=== PATIENT | female | born 1965 | race American Indian/Alaskan Native ===

== ENCOUNTER 2018-01-30 20:58 | Observation (INO) | payer BC, OTHER ==
--- NOTE | 2018-01-30 21:29 | ED PDOC ---
Arrival/HPI - General Chief Complaint: Lower Extremity Problem/Injury Time Seen by Provider: 01/30/18 21:01 Historian: Patient - History of Present Illness Narrative History of Present Illness (Text): 01/30/18 21:27 52yr old female presents today with left knee pain s/p fall. pt states she missed a step and stumbled forward down stairs then hitting her left knee directly onto the wooden poll. pt states she is unable to bear any weight on the left leg and is c/o pain to the anterior aspect of the knee. pt states incident occurred about 2 hours prior to arrival. no medications have been taken for pain. pt denies hitting her head. denies loc. pt denies cp or sob. no abdominal pain. pt states no other complaints. Past Medical History - Provider Review Nursing Documentation Reviewed: Yes - Travel History Have you recently traveled outside [place] w/in the past 3 mons?: No - Tetanus Immunization Tetanus Immunization: Unknown - Past Medical History Past Medical History: No Previous - Cardiac Hx Cardiac Disorders: No - Pulmonary Hx Respiratory Disorders: No - Neurological Hx Neurological Disorder: Yes Hx Migraine: Yes - HEENT Hx HEENT Disorder: No - Renal Hx Renal Disorder: No - Endocrine/Metabolic Hx Endocrine Disorders: No - Hematological/Oncological Hx Blood Disorders: No - Integumentary Hx Dermatological Disorder: No - Musculoskeletal/Rheumatological Hx Musculoskeletal Disorders: No - Gastrointestinal Hx Gastrointestinal Disorders: No - Genitourinary/Gynecological Hx Genitourinary Disorders: Yes Hx Urinary Tract Infection: Yes - Psychiatric Hx Psychophysiologic Disorder: Yes Hx Anxiety: Yes Hx Panic Disorder: Yes Hx Substance Use: No - Surgical History Hx Section: Yes - Suicidal Assessment Feels Threatened In Home Enviroment: No Family/Social History - Physician Review Nursing Documentation Reviewed: Yes Family/Social History: Unknown Family HX Smoking Status: Never Smoked Hx Alcohol Use: No Hx Substance Use: No Allergies/Home Meds Allergies/Adverse Reactions: Allergies No Known Allergies Allergy (Verified 01/30/18 20:59) Home Medications: Home Meds Medication Instructions Recorded Confirmed No Known Home Med 01/30/18 01/30/18 Review of Systems - Review of Systems Constitutional: absent: Fatigue, Fevers Respiratory: absent: SOB, Cough Cardiovascular: absent: Chest Pain, Palpitations Gastrointestinal: absent: Abdominal Pain, Constipation, Diarrhea, Nausea, Vomiting Genitourinary Female: absent: Dysuria, Frequency, Hematuria Musculoskeletal: Arthralgias (left knee pain). absent: Back Pain, Neck Pain Skin: absent: Rash, Pruritis Neurological: absent: Headache, Dizziness Psychiatric: absent: Anxiety, Depression Physical Exam Vital Signs Reviewed: Yes Vital Signs Temp Pulse Resp BP Pulse Ox 01/30/18 21:00 98.0 F 94 H 18 143/82 97 Temperature: Afebrile Blood Pressure: Normal Pulse: Regular Respiratory Rate: Normal Appearance: Positive for: Well-Appearing, Non-Toxic, Comfortable Pain Distress: None Mental Status: Positive for: Alert and Oriented X 3 - Systems Exam Head: Present: Atraumatic Pupils: Present: PERRL Extroacular Muscles: Present: EOMI Mouth: Present: Moist Mucous Membranes Neck: Present: Normal Range of Motion Respiratory/Chest: Present: Clear to Auscultation, Good Air Exchange. No: Respiratory Distress, Accessory Muscle Use, Tender to Palpation Cardiovascular: Present: Regular Rate and Rhythm Abdomen: No: Tenderness, Rebound, Guarding Back: Present: Normal Inspection Upper Extremity: Present: Normal Inspection, Normal ROM. No: Tenderness Lower Extremity: Present: Tenderness (left knee; + ttp over anteriolateral aspect of the knee. + ttp over the patella. unable to flex or extend the knee. no calf tenderness. no erythema; sensation and distal pulses intact. ), Swelling, Neurovascularly Intact, Capillary Refill < 2 s. No: CALF TENDERNESS, Normal ROM, Erythema Neurological: Present: GCS=15, Speech Normal, Normal Sensory Function Skin: Present: Warm, Dry, Normal Color Psychiatric: Present: Alert, Oriented x 3 Medical Decision Making ED Course and Treatment: 01/30/18 21:42 Patient nontoxic well-appearing in no distress with stable vital signs X-rays of the Left knee; no fx toradol pt with severe left pain; will not flex or extend knee; screaming in pain with attempted movement. CT of knee ordered. ct left knee; FINDINGS: BONES: No acute fracture or aggressive appearing osseous lesion. JOINTS: No dislocation. The joint spaces are normal. SOFT TISSUES: The soft tissues are unremarkable. IMPRESSION: No acute osseous abnormality. pt reassessment; pt has slight improvement in her knee pain. still unable to lift her leg of the bed; + tenderness over quadraceps tendon concerning for rupture. pt unable to ambulate. c/o severe pain with attempted movement. will admit observational status for ortho consult, pain control. knee immobilizer ordered. pt refused morphine; percocet given. case discussed with dr. zhao. accepts observational status admission with Ortho consult . Impression: knee pain, possible quadraceps tendon rupture. admit observational status to med/surg. Disposition/Present on Arrival - Present on Arrival Any Indicators Present on Arrival: No History of DVT/PE: No History of Uncontrolled Diabetes: No Urinary Catheter: No History of Decub. Ulcer: No History Surgical Site Infection Following: None - Disposition Have Diagnosis and Disposition been Completed?: Yes Diagnosis: Knee pain, Inability to ambulate due to knee Disposition: HOSPITALIZED Disposition Time: 22:30 Patient Plan: Observation Patient Problems: Current Active Problems Problem Status Onset Inability to ambulate due to knee Acute Knee pain Acute Condition: FAIR
[2018-01-31] MEDS: Morphine 4 mg/ml ISec IVP STA ×2 (01:38→02:25)
[2018-01-31] MEDS ORDERED: Oxycodone/Acetaminophen 5/325 mg Tab PO STA (01:48)
--- NOTE | 2018-01-31 02:15 | CP.PCM.HP ---
<HansaEdgar - Last Filed: 01/31/18 02:12> History of Present Illness - History of Present Illness History of Present Illness: Edgar Santo PGY1 H&P for Dr. Cutler Pt is a 52yo F with no PMH who presents to ED s/p fall. She reports falling into a wooden pole on the stairs directly on her L knee, and then falling down a few stairs. She denies dizziness prior to fall, loss of consciousness, or head trauma. She reports feeling pain in the L thigh and knee which she rates 10/10 and describes as a sharp pain. She reports limited ability to move L leg. She denies any previous history of difficulty ambulating. She denies numbness or tingling, loss of bowel or urine control. She denies shortness of breath, chest pain, abdominal pain, nausea, vomiting, diarrhea, or dysuria. SxH: FamH: mom and dad both , cancer SocH: denies tobacco or recreational drug use. reports occasional etoh use Allergies: NKDA Meds: none PMD: none Present on Admission - Present on Admission Any Indicators Present on Admission: No Review of Systems - Review of Systems Review of Systems: as per HPI Past Patient History - Tetanus Immunizations Tetanus Immunization: Unknown - Past Social History Smoking Status: Never Smoked - CARDIAC Hx Cardiac Disorders: No - PULMONARY Hx Respiratory Disorders: No - NEUROLOGICAL Hx Neurological Disorder: Yes Hx Migraine: Yes - HEENT Hx HEENT Problems: No - RENAL Hx Chronic Kidney Disease: No - ENDOCRINE/METABOLIC Hx Endocrine Disorders: No - HEMATOLOGICAL/ONCOLOGICAL Hx Blood Disorders: No - INTEGUMENTARY Hx Dermatological Problems: No - MUSCULOSKELETAL/RHEUMATOLOGICAL Hx Musculoskeletal Disorders: No - GASTROINTESTINAL Hx Gastrointestinal Disorders: No - GENITOURINARY/GYNECOLOGICAL Hx Genitourinary Disorders: Yes Hx Urinary Tract Infection: Yes - PSYCHIATRIC Hx Psychophysiologic Disorder: Yes Hx Anxiety: Yes Hx Panic Symptoms: Yes Hx Substance Use: No - SURGICAL HISTORY Hx Section: Yes Meds Allergies/Adverse Reactions: Allergies Allergy/AdvReac Type Severity Reaction Status Date / Time No Known Allergies Allergy Verified 01/30/18 20:59 Physical Exam - Constitutional Appears: Well, No Acute Distress - Head Exam Head Exam: ATRAUMATIC, NORMOCEPHALIC - Eye Exam Eye Exam: EOMI, Normal appearance, PERRL Pupil Exam: NORMAL ACCOMODATION - ENT Exam ENT Exam: Mucous Membranes Moist - Neck Exam Neck exam: Positive for: Normal Inspection - Respiratory Exam Respiratory Exam: Clear to Auscultation Bilateral, NORMAL BREATHING PATTERN. absent: Rales, Rhonchi, Wheezes, Respiratory Distress - Cardiovascular Exam Cardiovascular Exam: REGULAR RHYTHM, +S1, +S2. absent: Gallop, Rubs, Systolic Murmur - GI/Abdominal Exam GI & Abdominal Exam: Normal Bowel Sounds, Soft. absent: Distended, Firm, Tenderness - Extremities Exam Extremities exam: Positive for: tenderness. Negative for: pedal edema Additional comments: tenderness to palpation of patella and medial and lateral joint lines. mild edema in patella. tenderness to palpation of L distal quadriceps. Limited ROM in LLE due to pain. ROM in RLE intact. - Back Exam Back exam: NORMAL INSPECTION - Neurological Exam Neurological exam: Alert, Oriented x3 - Psychiatric Exam Psychiatric exam: Normal Affect, Normal Mood - Skin Skin Exam: Normal Color Results - Vital Signs Recent Vital Signs: Last Vital Signs Temp 98.0 F 01/30/18 21:00 Pulse 75 01/31/18 01:53 Resp 18 01/31/18 01:53 BP 110/81 01/31/18 01:53 Pulse Ox 100 01/31/18 01:53 Assessment & Plan - Assessment and Plan (Free Text) Assessment: 52yo F with no PMH who presents to ED s/p fall admitted for further evaluation and treatment of L knee pain. Plan: L knee pain - s/p fall - r/o quadriceps tendon rupture - CT L knee: no osseous abnormalities - tylenol 650mg PO q6h PRN mild pain - toradol 30 IVP q6h PRN moderate pain - percocet 1 tab po q6h PRN severe pain - fall precautions - L knee brace for stabilization - Ortho consulted, Dr. Little - f/u recs PPX GI: pepcid 20mg po BID DVT: lovenox 40mg sc Regular Diet Patient seen and case reviewed with Dr. Cutler <Stewart Cutler - Last Filed: 01/31/18 06:50> Results - Vital Signs Recent Vital Signs: Last Vital Signs Temp 98.0 F 01/30/18 21:00 Pulse 75 01/31/18 01:53 Resp 20 01/31/18 04:57 BP 110/81 01/31/18 01:53 Pulse Ox 100 01/31/18 01:53 - Labs Result Diagrams: 01/31/18 01:50 01/31/18 01:50 Labs: Laboratory Results - last 24 hr 01/31/18 01/31/18 01:50 01:50 WBC 7.9 RBC 4.22 Hgb 12.5 Hct 37.0 MCV 87.7 MCH 29.6 MCHC 33.8 RDW 14.9 H Plt Count 266 MPV 10.3 Gran % 64.3 Lymph % (Auto) 28.9 [place] % (Auto) 4.7 Eos % (Auto) 2.0 Baso % (Auto) 0.1 Gran # 5.09 Lymph # (Auto) 2.3 [place] # (Auto) 0.4 Eos # (Auto) 0.2 Baso # (Auto) 0.01 Sodium 139 Potassium 3.9 Chloride 106 Carbon Dioxide 26 Anion Gap 11 BUN 13 Creatinine 0.8 Est GFR ( Amer) > 60 Est GFR (Non-Af Amer) > 60 Random Glucose 97 Calcium 9.4 Total Bilirubin 0.3 AST 29 ALT 28 Alkaline Phosphatase 75 Total Protein 7.5 Albumin 4.1 Globulin 3.4 Albumin/Globulin Ratio 1.2 Attending/Attestation - Attestation I have personally seen and examined this patient.: Yes I have fully participated in the care of the patient.: Yes I have reviewed all pertinent clinical information: Yes Notes (Text): 01/31/18 06:49 Patient was seen when she was in the ER. Medical record was reviewed. Agree with history , physical examination, assessment and plan.
[2018-01-31 02:21] LABS: BASO # 0.01 K/mm3 (0.0-2.0); BASO % 0.1 % (0.0-3.0); EOS # 0.2 (0.0-0.7); GRAN # 5.09 (1.4-6.5); GRAN % 64.3 % (50.0-68.0); HEMOGLOBIN 12.5 g/dL (12.0-16.0); LYMPH # 2.3 (1.2-3.4); LYMPH % 28.9 % (22.0-35.0); MEAN CELL VOLUME 87.7 fl (80.0-105.0); MEAN CORPUSCULAR HEMOGLOBIN 29.6 pg (25.0-35.0); MEAN CORPUSCULAR HGB CONC 33.8 g/dl (31.0-37.0); MEAN PLATELET VOLUME 10.3 fl (7.0-11.0); MONO # 0.4 (0.1-0.6); MONO % 4.7 % (1.0-6.0); RBC 4.22 10^6/uL (3.5-6.1); RED CELL DISTRIBUTION WIDTH 14.9 % (11.5-14.5); WHITE BLOOD COUNT 7.9 10^3/uL (4.5-11.0)
[2018-01-31 02:46] LABS: ALB/GLOB RATIO 1.2 (1.1-1.8); ALBUMIN 4.1 g/dL (3.0-4.8); ALT/SGPT 28 U/L (7-56); AST/SGOT 29 U/L (14-36); BLOOD UREA NITROGEN 13 mg/dL (7-21); CALCIUM 9.4 mg/dL (8.4-10.5); GFR NON-AFRICAN AMERICAN > 60
[2018-01-31 05:09] VITALS: RESP 20; BMI 30.2
--- NOTE | 2018-01-31 09:23 | CT ---
Date of service: 01/30/2018 PROCEDURE: HISTORY: trauma, knee pain, unable to flex/extend the knee COMPARISON: TECHNIQUE: FINDINGS: No acute fracture dislocation. No gross soft tissue abnormality observed. IMPRESSION: Unremarkable CT scan of the left knee.
--- NOTE | 2018-01-31 09:29 | RAD ---
Date of service: 01/30/2018 PROCEDURE: Left Knee Radiographs. HISTORY: Pain. COMPARISON: None. FINDINGS: BONES: Normal. No fracture. JOINTS: Normal. No osteoarthritis. JOINT EFFUSION: Probable joint effusion OTHER FINDINGS: None. IMPRESSION: No evidence of fracture
[2018-01-31] MEDS: Enoxaparin 40 mg Syringe SC SCH (11:00)
[2018-01-31] MEDS: Oxycodone/Acetaminophen 5/325 mg Tab PO PRN ×2 (11:01→19:29)
[2018-02-01 07:03] LABS: BASO # 0.01 K/mm3 (0.0-2.0); BASO % 0.2 % (0.0-3.0); EOS # 0.1 (0.0-0.7); EOS % 2.1 % (1.5-5.0); GRAN # 3.52 (1.4-6.5); GRAN % 61.9 % (50.0-68.0); HEMOGLOBIN 11.1 g/dL (12.0-16.0); LYMPH # 1.7 (1.2-3.4); LYMPH % 29.6 % (22.0-35.0); MEAN CELL VOLUME 88.7 fl (80.0-105.0); MEAN CORPUSCULAR HEMOGLOBIN 28.5 pg (25.0-35.0); MEAN CORPUSCULAR HGB CONC 32.2 g/dl (31.0-37.0); MEAN PLATELET VOLUME 10.2 fl (7.0-11.0); MONO # 0.4 (0.1-0.6); MONO % 6.2 % (1.0-6.0); RBC 3.89 10^6/uL (3.5-6.1); RED CELL DISTRIBUTION WIDTH 15.6 % (11.5-14.5); WHITE BLOOD COUNT 5.7 10^3/uL (4.5-11.0)
[2018-02-01 07:39] LABS: ALB/GLOB RATIO 1.2 (1.1-1.8); ALBUMIN 3.7 g/dL (3.0-4.8); ALT/SGPT 26 U/L (7-56); AST/SGOT 19 U/L (14-36); BLOOD UREA NITROGEN 13 mg/dL (7-21); GFR NON-AFRICAN AMERICAN > 60
[2018-02-01] MEDS: Enoxaparin 40 mg Syringe SC SCH (09:14)
[2018-02-01 09:32] VITALS: BP 115/62; PULSE 67; TEMP 97.6; O2SAT 96
--- NOTE | 2018-02-01 14:53 | CP.PCM.DIS ---
<Paloma Jordan - Last Filed: 02/01/18 15:02> Provider - Provider Date of Admission: 02/01/18 07:44 Attending physician: Niecy Guy DO Consults: Orthopedic Surgery: Dr. Dexter Little Time Spent in preparation of Discharge (in minutes): 45 Hospital Course - Lab Results Lab Results: Most Recent Lab Values WBC 5.7 10^3/uL (4.5-11.0) D 02/01/18 06:00 RBC 3.89 10^6/uL (3.5-6.1) 02/01/18 06:00 Hgb 11.1 g/dL (12.0-16.0) L 02/01/18 06:00 Hct 34.5 % (36.0-48.0) L 02/01/18 06:00 MCV 88.7 fl (80.0-105.0) 02/01/18 06:00 MCH 28.5 pg (25.0-35.0) 02/01/18 06:00 MCHC 32.2 g/dl (31.0-37.0) 02/01/18 06:00 RDW 15.6 % (11.5-14.5) H 02/01/18 06:00 Plt Count 231 10^3/uL (120.0-450.0) 02/01/18 06:00 MPV 10.2 fl (7.0-11.0) 02/01/18 06:00 Gran % 61.9 % (50.0-68.0) 02/01/18 06:00 Lymph % (Auto) 29.6 % (22.0-35.0) 02/01/18 06:00 [place] % (Auto) 6.2 % (1.0-6.0) H 02/01/18 06:00 Eos % (Auto) 2.1 % (1.5-5.0) 02/01/18 06:00 Baso % (Auto) 0.2 % (0.0-3.0) 02/01/18 06:00 Gran # 3.52 (1.4-6.5) 02/01/18 06:00 Lymph # (Auto) 1.7 (1.2-3.4) 02/01/18 06:00 [place] # (Auto) 0.4 (0.1-0.6) 02/01/18 06:00 Eos # (Auto) 0.1 (0.0-0.7) 02/01/18 06:00 Baso # (Auto) 0.01 K/mm3 (0.0-2.0) 02/01/18 06:00 Sodium 142 mmol/L (132-148) 02/01/18 06:00 Potassium 4.2 mmol/L (3.6-5.0) 02/01/18 06:00 Chloride 109 mmol/L (98-107) H 02/01/18 06:00 Carbon Dioxide 26 mmol/L (21-33) 02/01/18 06:00 Anion Gap 11 (10-20) 02/01/18 06:00 BUN 13 mg/dL (7-21) 02/01/18 06:00 Creatinine 0.8 mg/dl (0.7-1.2) 02/01/18 06:00 Est GFR ( Amer) > 60 02/01/18 06:00 Est GFR (Non-Af Amer) > 60 02/01/18 06:00 Random Glucose 88 mg/dL (70-110) 02/01/18 06:00 Calcium 9.0 mg/dL (8.4-10.5) 02/01/18 06:00 Total Bilirubin 0.3 mg/dL (0.2-1.3) 02/01/18 06:00 AST 19 U/L (14-36) 02/01/18 06:00 ALT 26 U/L (7-56) 02/01/18 06:00 Alkaline Phosphatase 67 U/L (38-126) 02/01/18 06:00 Total Protein 6.7 g/dL (5.8-8.3) 02/01/18 06:00 Albumin 3.7 g/dL (3.0-4.8) 02/01/18 06:00 Globulin 3.0 gm/dL 02/01/18 06:00 Albumin/Globulin Ratio 1.2 (1.1-1.8) 02/01/18 06:00 - Hospital Course Hospital Course: Upon Admission 52yo F with no PMH who presents to ED s/p fall. She reports falling into a wooden pole on the stairs directly on her L knee, and then falling down a few stairs. She denies dizziness prior to fall, loss of consciousness, or head trauma. She reports feeling pain in the L thigh and knee which she rates 10/10 and describes as a sharp pain. She reports limited ability to move L leg. She denies any previous history of difficulty ambulating. She denies numbness or tingling, loss of bowel or urine control. She denies shortness of breath, chest pain, abdominal pain, nausea, vomiting, diarrhea, or dysuria. Hospital Course L knee xray and CT scan were performed which were both negative. B/l extremity ultrasound was also performed which revealed no DVT. She was evaluated by physical therapy after she had began walking. Outpatient PT was recommended for management of L leg pain. Orthopedic surgery reviewed that case, no surgical intervention was planned Upon Discharge: Pt reports improvement in pain and mobility of L leg. She tolerated PT evaluation well. She reports no acute complaints. 12 point ROS is negative. Vital signs are stable. She is hemodynamically stable. Labs are stable. She will be discharged home with a recommendation for outpatient physical therapy 3-5 times a week for 1 month for L leg strengthening. Discharge Exam - Head Exam Head Exam: ATRAUMATIC, NORMOCEPHALIC - Eye Exam Eye Exam: EOMI, Normal appearance - ENT Exam ENT Exam: Mucous Membranes Moist - Neck Exam Neck exam: Normal Inspection - Respiratory Exam Respiratory Exam: NORMAL BREATHING PATTERN, UNREMARKABLE - Cardiovascular Exam Cardiovascular Exam: REGULAR RHYTHM, +S1, +S2 - GI/Abdominal Exam GI & Abdominal Exam: Normal Bowel Sounds, Soft - Extremities Exam Extremities exam: normal inspection, tenderness (L quadriceps region) - Back Exam Back exam: NORMAL INSPECTION - Neurological Exam Neurological exam: Alert, Normal Gait, Oriented x3 - Psychiatric Exam Psychiatric exam: Normal Affect, Normal Mood - Skin Skin Exam: Dry, Intact, Warm Discharge Plan - Follow Up Plan Condition: FAIR Disposition: HOME/ ROUTINE Instructions: Preventing Falls in the Older Adult, Knee Pain (DC) Additional Instructions: Please follow the following instruction upon discharge from the hospital: Please follow up with your primary care doctor or at the [facility] within 3-5 days. Please continue physical therapy as an outpatient. You have been given a prescription. Take Tylenol as needed for pain. If pain persists, you can follow up with orthopedics, Dr. Little, as outpatient. You have been provided with his information. If your symptoms return, please visit the nearest emergency room Referrals: [facility] [place] Dexter Little MD [Staff Provider] - <Niecy Guy - Last Filed: 02/04/18 13:51> Provider - Provider Date of Admission: 01/31/18 00:55 Attending physician: Niecy Guy, DO Hospital Course - Lab Results Lab Results: Most Recent Lab Values WBC 5.7 10^3/uL (4.5-11.0) D 02/01/18 06:00 RBC 3.89 10^6/uL (3.5-6.1) 02/01/18 06:00 Hgb 11.1 g/dL (12.0-16.0) L 02/01/18 06:00 Hct 34.5 % (36.0-48.0) L 02/01/18 06:00 MCV 88.7 fl (80.0-105.0) 02/01/18 06:00 MCH 28.5 pg (25.0-35.0) 02/01/18 06:00 MCHC 32.2 g/dl (31.0-37.0) 02/01/18 06:00 RDW 15.6 % (11.5-14.5) H 02/01/18 06:00 Plt Count 231 10^3/uL (120.0-450.0) 02/01/18 06:00 MPV 10.2 fl (7.0-11.0) 02/01/18 06:00 Gran % 61.9 % (50.0-68.0) 02/01/18 06:00 Lymph % (Auto) 29.6 % (22.0-35.0) 02/01/18 06:00 [place] % (Auto) 6.2 % (1.0-6.0) H 02/01/18 06:00 Eos % (Auto) 2.1 % (1.5-5.0) 02/01/18 06:00 Baso % (Auto) 0.2 % (0.0-3.0) 02/01/18 06:00 Gran # 3.52 (1.4-6.5) 02/01/18 06:00 Lymph # (Auto) 1.7 (1.2-3.4) 02/01/18 06:00 [place] # (Auto) 0.4 (0.1-0.6) 02/01/18 06:00 Eos # (Auto) 0.1 (0.0-0.7) 02/01/18 06:00 Baso # (Auto) 0.01 K/mm3 (0.0-2.0) 02/01/18 06:00 Sodium 142 mmol/L (132-148) 02/01/18 06:00 Potassium 4.2 mmol/L (3.6-5.0) 02/01/18 06:00 Chloride 109 mmol/L (98-107) H 02/01/18 06:00 Carbon Dioxide 26 mmol/L (21-33) 02/01/18 06:00 Anion Gap 11 (10-20) 02/01/18 06:00 BUN 13 mg/dL (7-21) 02/01/18 06:00 Creatinine 0.8 mg/dl (0.7-1.2) 02/01/18 06:00 Est GFR ( Amer) > 60 02/01/18 06:00 Est GFR (Non-Af Amer) > 60 02/01/18 06:00 Random Glucose 88 mg/dL (70-110) 02/01/18 06:00 Calcium 9.0 mg/dL (8.4-10.5) 02/01/18 06:00 Total Bilirubin 0.3 mg/dL (0.2-1.3) 02/01/18 06:00 AST 19 U/L (14-36) 02/01/18 06:00 ALT 26 U/L (7-56) 02/01/18 06:00 Alkaline Phosphatase 67 U/L (38-126) 02/01/18 06:00 Total Protein 6.7 g/dL (5.8-8.3) 02/01/18 06:00 Albumin 3.7 g/dL (3.0-4.8) 02/01/18 06:00 Globulin 3.0 gm/dL 02/01/18 06:00 Albumin/Globulin Ratio 1.2 (1.1-1.8) 02/01/18 06:00 Attending/Attestation - Attestation I have personally seen and examined this patient.: Yes I have fully participated in the care of the patient.: Yes I have reviewed all pertinent clinical information, including history, physical exam and plan: Yes Notes (Text): Patient seen and examined by me with resident at 10:10AM on 02/01/18. Case including discharge plan discussed with resident. Agree with above with following additions/corrections. Patient is a 52 year old female with no significant past medical history that presented to the emergency room with left thigh/knee pain after having a mechanical fall. Please see H&P for full details. Patient was admitted with left knee and thigh pain. Left knee xray per radiologist showed no evidence of fracture. Left knee CT per radiologist showed unremarkable CT scan of left knee. Bilateral lower extremity venous dopplers negative for DVT. Patient was seen by physical therapy who recommended outpatient PT. Case was discussed with orthopedics, Dr. Little who suggested patient follow up outpatient with ortho if pain persists. Patient was able to ambulate. Pain did improved. No leukocytosis. Patient was afebrile. Patient was doing better and asking to go home. Patient was discharged home. On day of discharge, patient stated she was feeling much better. Left thigh and knee pain improved. Patient denied chest pain. No shortness of breath or palpitations. No nausea, vomiting, or abdominal pain. No headaches or dizziness. No lightheadedness. No dysuria. No fevers or chills. No diarrhea or constipation. Physical exam: General: Awake and alert lying in bed in no acute distress. HEENT: Normocephalic, atraumatic. Extraocular muscles intact, pupils equal and reactive, no scleral icterus. Oropharynx is pink and moist. Neck is supple. Cardiovascular: Regular rhythm. Normal S1 and S2. No murmurs. No rubs or gallops appreciated Pulmonary: Normal respiratory effort. Improved breath sounds. No rhonchi, rales or wheezing appreciated. Gastrointestinal: Soft, nondistended. Nontender. Positive bowel sounds all 4 quadrants. No guarding. Musculoskeletal: Moves all extremities. No calf tenderness. Positive left anterior thigh tendnerness above knee. Central nervous system: AAOx3, CN2-12 grossly intact. 5/5 muscle strength all extremities. Dermatologic: Skin warm and dry. Please see chart for full details. Follow up instructions: Patient to follow up with primary care doctor or at [facility] within 3-5 days. Patient to continue physical therapy as an outpatient. Patient to follow up with orthopedics Dr. Little if pain continues. All instructions explained to the patient in detail. Patient both understands and agrees to all instructions. Written instructions also given. Time spent in discharging the patient including chart review, medication reconciliation, discussion with the patient, medical logistics specialist, consultants, and nursing staff was 35 minutes.
--- NOTE | 2018-02-02 13:43 | US ---
HISTORY: Leg pain and swelling. Evaluate for DVT PHYSICIAN(S): Alex Gonzales MD. TECHNIQUE: Duplex sonography and color-flow Doppler with graded compression were used to evaluate the deep venous systems of both lower extremities. The exam is very limited by body habitus and edema. The lower femoral veins, popliteal veins, and tibial veins are not well seen FINDINGS: The visualized deep venous systems of both lower extremities are sonographically normal and compressible. Normal wave forms and augmentation are seen. There is no sonographic evidence for deep venous thrombosis in the visualized segments of both lower extremities. IMPRESSION: No sonographic evidence for deep venous thrombosis in the visualized segments of both lower extremities. Very limited study.
== END 2018-02-01 16:42 | disposition home or self-care (01) ==
LOC: ED 20:58 → ERH 01-31 00:55 → 3RSO 01-31 02:58 → INTOOBSV 02-01 07:44 → OBSVTOIN 02-01 07:44
PROVIDERS: ADMIT Internal Medicine; ATTEND Hospitalist
DX: M25.562 Pain in left knee (principal); M79.652 Pain in left thigh; S09.90XA Unspecified injury of head, initial encounter; W10.9XXA Fall (on) (from) unspecified stairs and steps, initial encounter; F41.0 Panic disorder [episodic paroxysmal anxiety]; Z87.440 Personal history of urinary (tract) infections; Z98.891 History of uterine scar from previous surgery
CPT/HCPCS: 36415; 73560; 73700; 80053; 85025; 93970; 96372; 97116; 97162; 97530; 99284; G0378; G8978; G8979; J1650; J1885